=== PATIENT | female | born 1935 | race Asian ===

== ENCOUNTER 2023-08-28 11:27 | Emergency (ER) | payer MEDICARE ==
[~2023-08-28] VITALS: Ht 165.1 cm; Wt 50.0 kg
[~2023-08-28 11:27] MED LIST: ALEN35TA41 PO; ASPI-556 PO; MV-M1TAB20 PO
[2023-08-28 11:35] VITALS: BP 125/65; PULSE 86; RESP 20; TEMP 98.3
[2023-08-28] MEDS: KETOROLAC TROMETHAMINE 30 MG/ML VIAL IM ONE (12:54)
[2023-08-28] MEDS ORDERED: IBUP-1492 PO (12:59)
== END 2023-08-28 16:52 | disposition home or self-care (01) ==
LOC: EMS 11:27
DX: S20.212A Contusion of left front wall of thorax, initial encounter (principal); X58.XXXA Exposure to other specified factors, initial encounter; Y93.89 Activity, other specified; Y92.89 Other specified places as the place of occurrence of the external cause; Y99.8 Other external cause status
CPT/HCPCS: 99283; 71101; 96372; J1885